=== PATIENT | male | born 1945 | race African-American/Black ===

== ENCOUNTER 2024-07-27 21:16 | Inpatient (IN) | payer MEDICARE, OTHER ==
[~2024-07-27] VITALS: Ht 190.5 cm; Wt 81.3 kg
[2024-07-27 21:52] LABS: Basophils # (auto) 0 10 ^3/uL (0-0.2); Basophils % (auto) 0.3 % (0.0-2.0); Eosinophils # (auto) 0.2 10 ^3/uL (0-0.8); Hematocrit 33.3 % (41.0-53.0); Hemoglobin 11.9 g/dL (13.5-17.5); Lymphocytes # (auto) 0.3 10 ^3/uL (0.4-5.4); Lymphocytes % (auto) 2.1 % (10.0-50.0); Mean Corpuscular Hemoglobin 31.6 pg (28.0-32.0); Mean Corpuscular Hgb Conc. 35.8 g/dL (32.0-36.0); Mean Corpuscular Volume 88.3 fL (80.0-100.0); Monocytes % (auto) 6.4 % (0.0-12.0); Neutrophils # (auto) 14.3 10 ^3/uL (1.6-8.6); Neutrophils % (auto) 90.2 % (37.0-80.0); Platelet Count (auto) 277 10^3/uL (140-450); Red Blood Cells 3.77 10^6/uL (4.5-5.90); Red Cell Distribution Width 15.2 % (11.8-14.3); White Blood Cell 15.8 10^3/uL (4.4-10.8)
[2024-07-27 22:00] LABS: Chloride 106 mmol/L (98-107); Potassium 4.4 mmol/L (3.5-5.1); Sodium 131 mmol/L (136-145)
[2024-07-27 22:01] LABS: Anion Gap 8 (5-15); Carbon Dioxide 17 mmol/L (20-30)
[2024-07-27 22:06] LABS: Glucose 141 mg/dL (74-106)
[2024-07-27 22:12] LABS: BUN/Creatinine Ratio 10.8 (10.0-20.0); Blood Urea Nitrogen 16 mg/dL (9-23)
[2024-07-27 22:13] VITALS: O2SAT 97
[2024-07-27 22:19] VITALS: O2SAT 97
[2024-07-28] VITALS (8 sets, daily range): BP systolic 139–152; BP diastolic 72–87; PULSE 74–96; RESP 18–30; TEMP 98.1; O2SAT 93–99
[2024-07-28] MEDS: ALBUTEROL SULF 2.5 MG/0.5ML(0.5%) NEB SOLN NEB ONE (03:22)
[2024-07-28] MEDS: methylPREDNISolone SOD SUCC 125 MG/2 ML VL IV ONE (04:14)
[2024-07-28] MEDS ORDERED: MORPHINE SULFATE INJ 2 MG/ml SYRG IV PRN (06:15)
[2024-07-28] MEDS ORDERED: ACETAMINOPHEN 325 MG TAB PO PRN (06:15)
[2024-07-28] MEDS ORDERED: NITROGLYCERIN 0.4 MG SL TAB SL PRN (06:15)
[2024-07-28] MEDS ORDERED: ONDANSETRON HCL 4 MG/2 ML VIAL IV PRN (06:15)
[2024-07-28 06:53] LABS: Triglycerides 36 mg/dL (< 150)
[2024-07-28] MEDS: cefTRIAXone 1GM/50ML D5W 50 ML IV SCH (06:53)
[2024-07-28 06:54] LABS: LDL Cholesterol 30 mg/dL (< 100)
[2024-07-28 06:55] LABS: Cholesterol 92 mg/dL (< 200); HDL Cholesterol 45 mg/dL (40-59)
[2024-07-28] MEDS: IPRATROPIUM BROM 0.5 MG/2.5ML INH SOL NEB PRN (08:35)
[2024-07-28] MEDS: ALBUTEROL SULF 2.5 MG/0.5ML(0.5%) NEB SOLN NEB PRN (08:36)
[2024-07-28 09:28] LABS: Basophils # (auto) 0 10 ^3/uL (0-0.2); Basophils % (auto) 0.1 % (0.0-2.0); Eosinophils # (auto) 0.3 10 ^3/uL (0-0.8); Eosinophils % (auto) 1.9 % (0.0-7.0); Hematocrit 34.7 % (41.0-53.0); Hemoglobin 12.6 g/dL (13.5-17.5); Lymphocytes # (auto) 0.7 10 ^3/uL (0.4-5.4); Lymphocytes % (auto) 4.3 % (10.0-50.0); Mean Corpuscular Hemoglobin 32.2 pg (28.0-32.0); Mean Corpuscular Hgb Conc. 36.2 g/dL (32.0-36.0); Mean Corpuscular Volume 89.1 fL (80.0-100.0); Monocytes % (auto) 6.4 % (0.0-12.0); Neutrophils # (auto) 13.7 10 ^3/uL (1.6-8.6); Neutrophils % (auto) 87.3 % (37.0-80.0); Platelet Count (auto) 286 10^3/uL (140-450); Red Cell Distribution Width 15.3 % (11.8-14.3); White Blood Cell 15.7 10^3/uL (4.4-10.8)
[2024-07-28] MEDS: ASPirin 81 mg TAB PO SCH (09:41)
[2024-07-28 09:54] LABS: Alanine Aminotransferase 13 U/L (7-40); Alkaline Phosphatase 69 U/L (46-116); Anion Gap 8 (5-15); Aspartate Aminotransferase 10 U/L (13-40); Bilirubin, Total 0.8 mg/dL (0.2-1.0); Blood Urea Nitrogen 18 mg/dL (9-23); Calcium 9.2 mg/dL (8.7-10.4); Carbon Dioxide 20 mmol/L (20-30); Chloride 106 mmol/L (98-107); Glucose 133 mg/dL (74-106); Magnesium 1.9 mg/dL (1.6-2.6); Potassium 4.3 mmol/L (3.5-5.1); Sodium 134 mmol/L (136-145); Total Protein 7.5 g/dL (5.7-8.2)
[2024-07-28] MEDS ORDERED: LISINOPRIL 5 MG TAB PO SCH (10:00)
[2024-07-28] MEDS: AZITHROMYCIN 250 MG TAB PO SCH (10:15)
[2024-07-28] MEDS: amLODIPine BESYLATE 5 MG TAB PO SCH (10:15)
[2024-07-28 11:13] LABS: Urine Bacteria None Seen /hpf (None Seen)
[2024-07-28 11:37] LABS: Creatinine, Urine 76.79 mg/dL (30.0-125.0)
[2024-07-28 11:44] LABS: Urine Blood TRACE /uL (Negative); Urine Clarity Clear (Clear); Urine Color Light-Yellow (Yellow); Urine Protein, UAD TRACE (Negative); Urine Urobilinogen Normal (Negative); Urine WBC 1 /hpf (0 - 3); Urine pH 5.5 (5.0-9.0)
[2024-07-28 12:32] LABS: COVID19 ANTIGEN SOFIA FIA NEGATIVE (NEGATIVE)
[2024-07-28 12:33] LABS: Rapid Influenza A Negative (Negative); Rapid Influenza B Negative (Negative)
[2024-07-28] MEDS: ENOXAPARIN SOD 40 MG/0.4 ML SYRINGE SC ONE (18:21)
[2024-07-28] MEDS ORDERED: NITR100C6 PO (22:16)
[2024-07-28] MEDS: ATORVASTATIN 20 MG TAB PO SCH (22:32)
[2024-07-29] VITALS (11 sets, daily range): BP systolic 123–151; BP diastolic 71–89; PULSE 65–83; RESP 18–20; TEMP 98.2–98.8; O2SAT 94–98
[2024-07-29 07:28] LABS: Basophils # (auto) 0 10 ^3/uL (0-0.2); Basophils % (auto) 0.2 % (0.0-2.0); Eosinophils # (auto) 0.8 10 ^3/uL (0-0.8); Eosinophils % (auto) 4.1 % (0.0-7.0); Hematocrit 33.5 % (41.0-53.0); Hemoglobin 11.9 g/dL (13.5-17.5); Lymphocytes # (auto) 0.6 10 ^3/uL (0.4-5.4); Mean Corpuscular Hemoglobin 31.7 pg (28.0-32.0); Mean Corpuscular Hgb Conc. 35.5 g/dL (32.0-36.0); Mean Corpuscular Volume 89.1 fL (80.0-100.0); Monocytes # (auto) 1.3 10 ^3/uL (0-1.3); Monocytes % (auto) 6.4 % (0.0-12.0); Neutrophils % (auto) 86.3 % (37.0-80.0); Platelet Count (auto) 252 10^3/uL (140-450); Red Blood Cells 3.76 10^6/uL (4.5-5.90); Red Cell Distribution Width 15.5 % (11.8-14.3); White Blood Cell 19.7 10^3/uL (4.4-10.8)
[2024-07-29 07:35] LABS: Anion Gap 4 (5-15); Calcium 9.4 mg/dL (8.7-10.4); Carbon Dioxide 22 mmol/L (20-30); Chloride 105 mmol/L (98-107); Potassium 4.5 mmol/L (3.5-5.1); Sodium 131 mmol/L (136-145)
[2024-07-29 07:41] LABS: Glucose 124 mg/dL (74-106)
[2024-07-29] MEDS: ENOXAPARIN SOD 40 MG/0.4 ML SYRINGE SC SCH (09:00)
[2024-07-29] MEDS: SODIUM CHLORIDE 0.9% 1,000 ML IV SCH (09:01)
[2024-07-29] MEDS: amLODIPine BESYLATE 5 MG TAB PO SCH (09:02)
[2024-07-29] MEDS ORDERED: amLODIPine BESYLATE 5 MG TAB PO SCH ×2 (10:00)
[2024-07-29 12:29] LABS: BUN/Creatinine Ratio 17.1 (10.0-20.0); Blood Urea Nitrogen 21 mg/dL (9-23)
[2024-07-30] VITALS (7 sets, daily range): BP systolic 115–128; BP diastolic 66–72; PULSE 62–86; RESP 17–19; TEMP 36.6; O2SAT 96–97
[2024-07-30 06:34] LABS: Basophils # (auto) 0 10 ^3/uL (0-0.2); Basophils % (auto) 0.3 % (0.0-2.0); Chloride 107 mmol/L (98-107); Eosinophils % (auto) 9.7 % (0.0-7.0); Hematocrit 35.1 % (41.0-53.0); Hemoglobin 12.6 g/dL (13.5-17.5); Lymphocytes % (auto) 9.7 % (10.0-50.0); Mean Corpuscular Hgb Conc. 35.7 g/dL (32.0-36.0); Mean Corpuscular Volume 89.7 fL (80.0-100.0); Monocytes # (auto) 0.9 10 ^3/uL (0-1.3); Monocytes % (auto) 8.6 % (0.0-12.0); Neutrophils # (auto) 7.2 10 ^3/uL (1.6-8.6); Neutrophils % (auto) 71.7 % (37.0-80.0); Nucleated Red Blood Cells % 0.5 %; Platelet Count (auto) 256 10^3/uL (140-450); Potassium 4.4 mmol/L (3.5-5.1); Red Blood Cells 3.92 10^6/uL (4.5-5.90); Red Cell Distribution Width 15.7 % (11.8-14.3); Sodium 133 mmol/L (136-145)
[2024-07-30 06:35] LABS: Anion Gap 3 (5-15); Calcium 9.4 mg/dL (8.7-10.4); Carbon Dioxide 23 mmol/L (20-30)
[2024-07-30 06:40] LABS: BUN/Creatinine Ratio 18.3 (10.0-20.0); Blood Urea Nitrogen 23 mg/dL (9-23); Glucose 103 mg/dL (74-106)
[2024-07-30] MEDS ORDERED: AZIT500T66 PO (11:22)
[2024-07-30] MEDS ORDERED: ATOR40TA52 PO (11:22)
[2024-07-30] MEDS ORDERED: AMLO1TAB23 PO (11:22)
== END 2024-07-30 16:30 | disposition home or self-care (01) | DRG 177 ==
LOC: EDBD 21:16 → ER 21:16 → TELE 07-28 06:09 → TELE-CENTR 07-28 21:45 → CENTRAL 07-29 11:12
PROVIDERS: ADMIT Internal Medicine; ATTEND Internal Medicine
DX: J15.69 Pneumonia due to other Gram-negative bacteria (principal); J96.01 Acute respiratory failure with hypoxia; N17.9 Acute kidney failure, unspecified; J15.9 Unspecified bacterial pneumonia; Z79.899 Other long term (current) drug therapy; I50.9 Heart failure, unspecified; I11.0 Hypertensive heart disease with heart failure; F17.200 Nicotine dependence, unspecified, uncomplicated; E78.5 Hyperlipidemia, unspecified; I25.2 Old myocardial infarction
CPT/HCPCS: 36415; 71045; 71275; 76775; 80048; 80053; 80061; 81001; 82570; 83735; 83880; 84300; 84443; 84484; 85025; 85379; 87040; 87081; 87426; 87804; 93005; 93306; 94640; G0378